=== PATIENT | female | born 1950 | race Caucasian/White ===

== ENCOUNTER 2018-05-31 19:10 | Emergency (ER) | payer OTHER ==
[~2018-05-31] VITALS: Ht 165.1 cm; Wt 72.0 kg
[2018-05-31] MEDS ORDERED: BACITRACIN ZINC OINT UDPKT TOP ONE (20:30)
[2018-05-31] MEDS ORDERED: LIDOCAINE HCL/PF 1% 10 MG/ML 5ML VIAL IJ ONE (20:30)
[2018-05-31] MEDS ORDERED: IBUPROFEN 600MG TABLET PO ONE (21:15)
[2018-05-31 21:18] VITALS: BP 131/73
== END 2018-05-31 21:46 | disposition home or self-care (01) ==
LOC: ER 19:10
DX: S01.111A Laceration without foreign body of right eyelid and periocular area, initial encounter (principal); W10.0XXA Fall (on)(from) escalator, initial encounter; Y93.89 Activity, other specified; Y92.520 Airport as the place of occurrence of the external cause; Y99.8 Other external cause status
CPT/HCPCS: 12011; 99283; J3490